=== PATIENT | female | born 1930 | race Caucasian/White ===

== ENCOUNTER 2016-04-09 11:30 | Inpatient (IN) | payer MEDICARE ==
--- NOTE | 2016-04-14 12:47 | HISTORY & PHYSICAL ---
DATE OF ADMISSION: 04/15/16 ADMITTING PHYSICIAN: Axel Mcgarry MD ADMITTING DIAGNOSIS: Severe osteoarthritis of the right knee. HISTORY OF PRESENT ILLNESS: The patient is an 85-year-old female with a longstanding history of right knee pain, who was noted to have severe osteoarthritis of her right knee. Her pain has become quite limiting in terms of her ability to perform activities of daily living and has been refractory to long-term nonoperative management, including activity modification, anti- inflammatories and injection. Due to the severity of her symptoms, she is being admitted for right total knee arthroplasty. PAST MEDICAL HISTORY: Essentially unremarkable. PAST SURGICAL HISTORY: Negative. MEDICATIONS: None on a regular basis except for low-dose aspirin, which she recently stopped. ALLERGIES: No known drug allergies. SOCIAL HISTORY: The patient is a nonsmoker and reports no alcohol use. FAMILY HISTORY: Noncontributory. REVIEW OF SYSTEMS: Negative for chest pain, shortness of breath, or unexplained fever or weight loss. Review of systems is otherwise noncontributory. PHYSICAL EXAMINATION GENERAL: Well-appearing senior female in no acute distress. Alert and oriented x3. HEENT: Atraumatic/normocephalic. EOMI. NECK: Supple without adenopathy. CHEST: Regular rate and rhythm without murmur. LUNGS: Clear to auscultation. ABDOMEN: Soft, nontender. Normoactive bowel sounds. EXTREMITY: She has range of motion in her right knee from 0-130 degrees. There is no varus or valgus instability, negative Maldonado and a negative drawer. She is nontender at the lateral aspect of the knee, but is tender to palpation at the medial joint line. She has 2+ dorsalis pedis pulse distally and has sensation intact throughout to light touch. NEUROLOGIC: Nonfocal. IMAGING: Radiographs of the knee reveal extensive joint space narrowing of the medial compartment, and an MRI of the knee confirms diffuse grade 4 degenerative change. The lateral compartment has evidence of early arthroses and she has moderate patellofemoral arthroses. ASSESSMENT: Severe osteoarthritis of the right knee, with the most significant involved being that of the medial compartment. PLAN: Patient will be taken to the operating room for right total knee arthroplasty. We have discussed the operation, risks and indications. The risks of the procedure include but are not limited to infection, blood loss or nerve injury, persistent pain or stiffness in the knee, premature failure or loosening of the knee implants, or deep vein thrombosis which could potentially lead to a fatal pulmonary embolism. The patient has acknowledged the risks and desires to proceed as planned. MTDD
[2016-04-15] MEDS ORDERED: INSULIN LISPRO 100 UNIT/ML ML SUBCUT ONE (06:27)
[2016-04-15] MEDS ORDERED: CEFAZOLIN SODIUM/DEXTROSE,ISO 2 GM/50 ML PIGGYBACK IV ONE ×2 (06:30→07:30)
[2016-04-15] MEDS ORDERED: FENTANYL 100 MCG/2 ML VIAL ONE (07:14)
[2016-04-15] MEDS ORDERED: FAMOTIDINE IN SALINE, ISO-OSM 50 ML IV ONE (07:17)
[2016-04-15] MEDS ORDERED: MIDAZOLAM HCL 2 MG/2 ML VIAL ONE (07:17)
[2016-04-15] MEDS ORDERED: TETRACAINE HCL 1% 20 MG/2 ML AMP ONE (07:19)
[2016-04-15] MEDS ORDERED: TRANEXAMIC ACID 1,000 MG in NORMAL SALINE 100 ML IV SCH ×3 (07:30→09:16)
[2016-04-15] MEDS ORDERED: LIDOCAINE HCL 2% 20 ML VIAL ONE (07:41)
[2016-04-15] MEDS ORDERED: LIDOCAINE HCL 1% 20 ML VIAL SUBCUT ONE ×2 (08:42→09:16)
[2016-04-15] MEDS ORDERED: FAMOTIDINE IN SALINE, ISO-OSM 20 MG/50 ML PIGGYBACK IV SCH ×2 (08:42→09:16)
[2016-04-15] MEDS ORDERED: MIDAZOLAM HCL 2 MG/2 ML SYR IV ONE ×2 (08:42→09:16)
[2016-04-15] MEDS ORDERED: LACTATED RINGERS 1,000 ML IV SCH ×3 (09:00→09:16)
[2016-04-15] MEDS ORDERED: NALBUPHINE HCL 10 MG/ML AMP IV PRN ×2 (09:16→11:04)
[2016-04-15] MEDS ORDERED: MORPHINE SULFATE 10 MG/ML SYR IV PRN (09:16)
[2016-04-15] MEDS ORDERED: ONDANSETRON HCL 4 MG/2 ML VIAL IV PRN (09:16)
[2016-04-15] MEDS ORDERED: FENTANYL 100 MCG/2 ML VIAL IV PRN (09:16)
[2016-04-15] MEDS ORDERED: NALOXONE HCL 0.4 MG/ML VIAL IV PRN ×6 (09:16→11:04)
[2016-04-15] MEDS ORDERED: DIPHENHYDRAMINE 25 MG CAPSULE PO PRN ×2 (09:16→11:04)
[2016-04-15] MEDS ORDERED: DIPHENHYDRAMINE 50 MG/ML VIAL IV PRN ×2 (09:16→11:04)
[2016-04-15] MEDS ORDERED: MORPHINE SULFATE/PF 10 MG/10 ML VIAL ONE ×2 (09:55→10:01)
[2016-04-15] MEDS ORDERED: BUPIVACAINE/EPI 0.25% 1 VIAL VIAL ONE (09:56)
[2016-04-15] MEDS ORDERED: ROPIVACAINE HCL 0.5% 30 ML ONE (10:02)
[2016-04-15] MEDS ORDERED: NORMAL SALINE 10 ML VIAL ONE (10:02)
[2016-04-15] MEDS ORDERED: KETOROLAC TROMETHAMINE 30 MG/ML VIAL ONE (10:02)
--- NOTE | 2016-04-15 10:07 | PROCEDURE NOTE: Orthopedics ---
Orthopedic Procedure note - Brief Operative Note Date of procedure: 04/15/16 Pre-Op Diagnosis: DJD R knee Post-op diagnosis: same Procedure: R TKA Implants: Depuy Attune knee, size 4 femoral & tibial components, cemented, CR, 10mm poly insert Anesthesia Type: Spinal Physician: MARTHA CHAN Estimated Blood Loss: 10 Total Tourniquet Time (mins): 97 Specimen/Pathology: none sent Sponge/instrument count: correct X-ray/Fluoroscopy: No Condition: stable Disposition: PACU
[2016-04-15] MEDS: CEFAZOLIN SODIUM 1 GM in NORMAL SALINE MINI-BAG+ 100 ML IV SCH ×2 (12:00→18:12)
[2016-04-15] MEDS: ACETAMINOPHEN 325 MG TABLET PO PRN ×3 (14:08→20:08)
[2016-04-15] MEDS: ONDANSETRON HCL 4 MG/2 ML VIAL IV PRN (14:14)
[2016-04-15 14:31] LABS: URINE MUCUS NONE SEEN (Up to 25%); URINE SQUAMOUS EPITHELIAL CELL NONE SEEN (<= 15/hpf); URINE WBC NONE SEEN (0-4/hpf)
[2016-04-15 14:34] LABS: URINE APPEARANCE CLEAR; URINE BILIRUBIN NEGATIVE (NEGATIVE); URINE BLOOD 50 Ery/uL (2+) (NEGATIVE); URINE COLOR YELLOW; URINE GLUCOSE NORMAL (NEGATIVE); URINE KETONE NEGATIVE (NEGATIVE); URINE LEUKOCYTE ESTERASE NEGATIVE (NEGATIVE); URINE NITRITE NEGATIVE (NEGATIVE); URINE PH 5.5 (5-7); URINE PROTEIN NEGATIVE (NEG - TRACE); URINE UROBILINOGEN 0.2mg/dL (Normal) (NEG-1mg/dL)
[2016-04-15 14:43] LABS: URINE BACTERIA <10 ORGANISMS/hpf (<10/hpf)
--- NOTE | 2016-04-15 15:13 | OPERATIVE REPORT ---
DATE OF SURGERY: 04/15/16 SURGEON: Axel Mcgarry MD PREOPERATIVE DIAGNOSIS: Severe osteoarthritis of the right knee. POSTOPERATIVE DIAGNOSIS: Severe osteoarthritis of the right knee. PROCEDURE PERFORMED: Right total knee arthroplasty. IMPLANTS USED: DePuy Attune knee size 4 cemented femoral and tibial components, cruciate retaining with a 10 mm polyethylene insert. 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 She underwent a recent set of radiographs and MRI, which revealed findings consistent with the extensive loss of articular cartilage from the medial femoral condyle as well as fairly severe patellofemoral arthroses. Due to her ongoing symptoms as well as these findings , she was taken to the operating room for right total knee arthroplasty. SUMMARY: After informed consent was obtained, the patient was taken to the operating room where she was placed in the supine position under spinal-block anesthesia. After adequate anesthesia was achieved, the right knee and lower extremity were prepped and draped in the usual sterile fashion, the wound was gently exsanguinated, and a tourniquet was inflated about the proximal thigh to 300 mmHg. A longitudinal incision was then performed over the anterior aspect of the knee and the underlying soft tissue was sharply dissected to reveal the underlying extensor retinaculum. The extensor retinaculum was incised in a medial patellar fashion, and the patella was retracted laterally in order to expose the proximal tibia. First the medial aspect of the tibia metaphysis was exposed, and then the infrapatellar fat pad was resected. The synovectomy was then performed on the suprapatellar pouch, and then the patella was retracted laterally and the knee was brought up into flexion. The medial and lateral menisci were resected, as was the anterior cruciate ligament. The starting position for the intramedullary guide was then established using a rongeur, and the medullary drill was drilled into the femoral canal. The intramedullary guide was then placed into the femoral canal, and the cutting guide was positioned for resection of 9 mm from the distal femur. The cutting guide was then held in place using pins, and the cut was performed using an oscillating saw. The femur was then sized to a size 4, and the 4-way cutting block was positioned on the distal femur and held in place using pins. Once proper position was verified, the final cuts were performed using the oscillating saw. The 4-way cutting block was removed, and then the sulcus guide was placed onto the distal femur, at which time the sulcus resection was performed using a rasp. Attention was then focused on the proximal tibia, at which time the tibial guide was positioned over the anterior aspect of the tibial plateau. It was set for 9 mm of resection from both sides, as she actually had very little articular cartilage on the tibial side of her knee. Once again, the guide was held in place using pins, and then the tibial cut was performed using an oscillating saw. The tibia was also sized to a size 4. The trial components were then placed into the knee, and initially it appeared that the knee was stable with a size 7 insert. We moved the knee through range of motion and she was noted to have good roll back and good stability with varus and valgus stress and full extension. The knee was brought out into extension in order to establish proper rotation, and then the proximal tibia was marked for proper rotation using electrocautery. At that time, the knee was lifted into extension and the patella was measured at only 20 mm of thickness, so we took care in avoiding excessive resection of the patella. It was sized to a size 32, and then the patellar cutting guide was used to resect the articular side of the patella, leaving 13 mm of thickness. The patellar template was placed onto the patella, and the lug holes were drilled. The patellar trial component was then placed onto the patella, and the patella was reduced. The knee was moved through range of motion, and the patella was noted to track well. The patellar trial was then removed, and the knee was brought back up into flexion. At that time, the lug holes were drilled into the distal femur, and then the femoral trial component was removed. The tibial tray was held in position using pins, and then final preparation of the tibia was performed using the drill and summers hole punch. All the trial components were then removed, and then the bony surfaces were irrigated with copious amounts of sterile saline under pulsatile lavage. The knee was then brought out into full extension, at which time the entire wound was thoroughly irrigated under pulsatile lavage. Excess fluid was then drained from the knee as the cement was being mixed, and the posterior joint capsule and the medial and lateral joint capsules were injected with the orthopedic cocktail. The knee was then brought back up into flexion, and once again, the bony surfaces were lavaged and carefully dried, after which the tibial component was cemented into position. The excess cement was removed, and then the femoral component was cemented in the same fashion. Once again, the cement was removed, and the trial insert was then placed into the knee. The knee was brought out into extension in order to allow the cement to harden, and attention was focused back on the patella. The patella was carefully lavaged and dried, after which the patellar component was then cemented into position. Once again, the excess cement was removed. Once all the cement had hardened, the patella was reduced, and once again the knee was moved through a range of motion to verify full extension, as well as good stability with varus and valgus stress. We did decide to use a size 8 polyethylene insert. This again provided good roll back as well as good stability in both flexion and extension. The trial insert was removed, and the wound was irrigated one more time. The polyethylene insert was then taped into place, and we tested the knee for range of motion and stability one last time. The wound was then irrigated again, and then a deep drain was placed. The retinaculum was closed at the high tension point using #1 Fiberwire, and then the remainder of the retinaculum was closed using #1 Vicryl in an interrupted [id number] fashion. The subcutaneous tissue was then closed in layers using 0 and then 2-0 Vicryl, and the skin was closed using skin kenneth. The remaining portion of the orthopedic cocktail was injected into the retinaculum adjacent to the incision, and then the incision site and subcutaneous tissue were injected 0.25% Marcaine with epinephrine. A lightly compressive sterile dressing was then applied, and the tourniquet was deflated. The patient tolerated the procedure well and was taken to the recovery room in stable condition. ESTIMATED BLOOD LOSS: Minimal. FLUIDS: Lactated ringers 1000 mL. TOURNIQUET TIME: 97 minutes. MTDD
[2016-04-15] MEDS: DEXTROSE 5% LACTATED RINGERS 1,000 ML IV SCH (18:12)
[2016-04-15] MEDS: DOCUSATE SODIUM 100 MG CAPSULE PO SCH (20:07)
[2016-04-15] MEDS: CELECOXIB 100 MG CAPSULE PO SCH (20:07)
[2016-04-16] MEDS: CEFAZOLIN SODIUM 1 GM in NORMAL SALINE MINI-BAG+ 100 ML IV SCH (03:28)
[2016-04-16] MEDS: ACETAMINOPHEN 325 MG TABLET PO PRN ×3 (05:40→17:42)
[2016-04-16 06:45] LABS: BASOPHILS 0.2 % (0.0-2.0); EOSINOPHILS 1.8 % (0.0-6.0); EOSINOPHILS# 0.1 X 10^3uL (0.0-0.4); HEMATOCRIT 33.8 % (36.0-48.0); HEMOGLOBIN 11.2 g/dL (12.0-16.0); LYMPHOCYTES 24.5 % (20.0-40.0); LYMPHOCYTES# 1.5 X 10^3uL (0.8-3.8); MEAN CELL VOLUME 91.1 fL (84.0-102.0); MEAN CORPUSCULAR HEMOGLOBIN 30.1 pg (29.0-35.0); MEAN PLATELET VOLUME 7.2 fL (7.4-10.4); MONOCYTES 8.3 % (2.0-10.0); MONOCYTES# 0.5 X 10^3uL (0.2-1.0); NEUTROPHILS 65.2 % (54.0-75.0); NEUTROPHILS# 4.2 X 10^3uL (2.6-6.7); RED BLOOD COUNT 3.71 X 10^6uL (4.20-6.10); RED CELL DISTRIBUTION WIDTH 12.8 % (11.5-14.5); WHITE BLOOD COUNT 6.3 X 10^3uL (3.9-10.7)
[2016-04-16] MEDS: DEXTROSE 5% LACTATED RINGERS 1,000 ML IV SCH (08:17)
--- NOTE | 2016-04-16 08:18 | PROGRESS NOTE: Orthopedics ---
Orthopedic PN Subjective - Subjective Principal Diagnosis: Post op R TKA Post-op Day: 1 Interval history: Pt feels well. Reports pain is well-controlled. Ortho PN Objective Exam - Latest Vital Signs and I&O Latest Vital Signs/I&O: Vital Signs Temp 36.4 C 04/16/16 07:00 Pulse 70 04/16/16 07:00 Resp 14 04/16/16 07:00 BP 124/61 04/16/16 07:00 Pulse Ox 91 04/16/16 07:00 Intake & Output 04/15/16 04/16/16 04/16/16 17:59 05:59 17:59 Intake Total 640 2167 Output Total 815 770 Balance -175 1397 Weight 63.503 kg Intake: IV 1707 Right Hand 1707 Oral 640 460 Output: Drainage 175 270 R. Knee Hemovac 175 270 Urine 640 500 Other: Urine Appearance Clear Clear Urine Color Yellow Yellow Voiding Method Indwelling Catheter Indwelling Catheter # Bowel Movements 0 - Post-Operative Exam Post-op Day: 1 Dressing Status: dry & intact Active Motor: intact Sensation: intact Ahsan's sign: Negative - Lab Labs: Laboratory Last Values WBC 6.3 X 10^3uL (3.9-10.7) 04/16/16 06:05 RBC 3.71 X 10^6uL (4.20-6.10) L 04/16/16 06:05 Hgb 11.2 g/dL (12.0-16.0) L 04/16/16 06:05 Hct 33.8 % (36.0-48.0) L 04/16/16 06:05 MCV 91.1 fL (84.0-102.0) 04/16/16 06:05 MCH 30.1 pg (29.0-35.0) 04/16/16 06:05 MCHC 33.0 g/dL (32.0-36.0) 04/16/16 06:05 RDW 12.8 % (11.5-14.5) 04/16/16 06:05 Plt Count 235 X 10^3uL (130-440) 04/16/16 06:05 MPV 7.2 fL (7.4-10.4) L 04/16/16 06:05 Neutrophils % 65.2 % (54.0-75.0) 04/16/16 06:05 Lymphocytes % 24.5 % (20.0-40.0) 04/16/16 06:05 Eosinophils % 1.8 % (0.0-6.0) 04/16/16 06:05 Basophils % 0.2 % (0.0-2.0) 04/16/16 06:05 Neutrophils # 4.2 X 10^3uL (2.6-6.7) 04/16/16 06:05 Lymphocytes # 1.5 X 10^3uL (0.8-3.8) 04/16/16 06:05 Monocytes 8.3 % (2.0-10.0) 04/16/16 06:05 Monocytes # 0.5 X 10^3uL (0.2-1.0) 04/16/16 06:05 Eosinophils # 0.1 X 10^3uL (0.0-0.4) 04/16/16 06:05 Basophils # 0.0 X 10^3uL (0.0-0.1) 04/16/16 06:05 Urine Color Yellow 04/15/16 13:59 Urine Appearance Clear 04/15/16 13:59 Urine pH 5.5 (5-7) 04/15/16 13:59 Ur Specific [place] 1.010 (0.001-1.035) 04/15/16 13:59 Urine Protein Negative (NEG - TRACE) 04/15/16 13:59 Urine Ketones Negative (NEGATIVE) 04/15/16 13:59 Urine Blood 50 lakisha/ul (2+) (NEGATIVE) A 04/15/16 13:59 Urine Nitrate Negative (NEGATIVE) 04/15/16 13:59 Urine Bilirubin Negative (NEGATIVE) 04/15/16 13:59 Urine Urobilinogen 0.2mg/dl (normal) (NEG-1mg/dL) 04/15/16 13:59 Ur Leukocyte Esterase Negative (NEGATIVE) 04/15/16 13:59 Urine RBC 5-10/hpf (0-5/hpf) A 04/15/16 13:59 Urine WBC None seen (0-4/hpf) 04/15/16 13:59 Ur Squamous Epith Cells None seen (<= 15/hpf) 04/15/16 13:59 Urine Bacteria <10 organisms/hpf (<10/hpf) 04/15/16 13:59 Urine Mucus None seen (Up to 25%) 04/15/16 13:59 Urine Glucose Normal (NEGATIVE) 04/15/16 13:59 Assessment and Plan-Ortho - Date of Encounter Date of Encounter: 04/16/16 (1) Status post total knee replacement, right Assessment and plan: Doing fairly well, but has not yet been out of bed. Plan: Begin mobilization/PT Current Visit: Yes Quality Questions - VTE Prophylaxis Assessment VTE Present on Admission?: No Patient at risk for venous thromboembolism?: Yes VTE Risk Level: High Risk VTE Medical Contraindication: N/A-VTE Prophylaxis ordered
[2016-04-16] MEDS: ENOXAPARIN SODIUM 30 MG/0.3 ML SYR SUBCUT SCH (08:19)
[2016-04-16] MEDS: CELECOXIB 100 MG CAPSULE PO SCH ×2 (08:19→21:09)
[2016-04-16] MEDS: DOCUSATE SODIUM 100 MG CAPSULE PO SCH ×2 (08:19→21:09)
[2016-04-16] MEDS: MULTIVITAMINS THERAPEUTIC 1 TABLET PO SCH (08:19)
[2016-04-16] MEDS ORDERED: O2 HUMIDIFIER 650 ML BOTTLE INHALATION ONE (21:56)
[2016-04-17] MEDS: ACETAMINOPHEN 325 MG TABLET PO PRN ×3 (00:35→12:19)
[2016-04-17] MEDS: ONDANSETRON HCL 4 MG/2 ML VIAL IV PRN ×3 (00:44→08:23)
[2016-04-17] MEDS: DEXTROSE 5% LACTATED RINGERS 1,000 ML IV SCH (00:51)
[2016-04-17 05:39] LABS: EOSINOPHILS 0.7 % (0.0-6.0); RED BLOOD COUNT 3.4 X 10^6uL (4.20-6.10)
[2016-04-17 05:44] LABS: BASOPHILS 0.3 % (0.0-2.0); HEMATOCRIT 31.1 % (36.0-48.0); HEMOGLOBIN 10.4 g/dL (12.0-16.0); LYMPHOCYTES 21.4 % (20.0-40.0); LYMPHOCYTES# 1.3 X 10^3uL (0.8-3.8); MEAN CELL VOLUME 91.6 fL (84.0-102.0); MEAN CORPUS. HGB CONCENTRATION 33.4 g/dL (32.0-36.0); MEAN CORPUSCULAR HEMOGLOBIN 30.6 pg (29.0-35.0); MONOCYTES 9.9 % (2.0-10.0); MONOCYTES# 0.6 X 10^3uL (0.2-1.0); NEUTROPHILS 67.7 % (54.0-75.0); NEUTROPHILS# 4.4 X 10^3uL (2.6-6.7); WHITE BLOOD COUNT 6.3 X 10^3uL (3.9-10.7)
--- NOTE | 2016-04-17 09:31 | PROGRESS NOTE: Orthopedics ---
Orthopedic PN Subjective - Subjective Principal Diagnosis: Post op R TKA Post-op Day: 2 Interval history: Pt feels well. Mild nausea this AM but was able to ambulate about 25 feet w/ assistance Ortho PN Objective Exam - Latest Vital Signs and I&O Latest Vital Signs/I&O: Vital Signs Temp 36.7 C 04/17/16 07:00 Pulse 76 04/17/16 07:00 Resp 20 04/17/16 07:00 BP 135/65 04/17/16 07:00 Pulse Ox 94 04/17/16 07:00 Intake & Output 04/16/16 04/17/16 04/17/16 17:59 05:59 17:59 Intake Total 1650 1859 Output Total 1000 200 Balance 650 1659 Weight 63.5 kg Intake: IV 650 1009 Right Hand 650 1009 Oral 1000 850 Output: Urine 1000 200 Other: Urine Appearance Clear Clear Urine Color Yellow Yellow Voiding Method Toilet Toilet # Voids 3 4 # Bowel Movements 0 - Post-Operative Exam Dressing Status: dry & intact Drainage Amount: none Active Motor: intact Sensation: intact Ahsan's sign: Negative Calf tenderness: no - Lab Labs: Laboratory Last Values WBC 6.3 X 10^3uL (3.9-10.7) 04/17/16 05:00 RBC 3.40 X 10^6uL (4.20-6.10) L 04/17/16 05:00 Hgb 10.4 g/dL (12.0-16.0) L 04/17/16 05:00 Hct 31.1 % (36.0-48.0) L 04/17/16 05:00 MCV 91.6 fL (84.0-102.0) 04/17/16 05:00 MCH 30.6 pg (29.0-35.0) 04/17/16 05:00 MCHC 33.4 g/dL (32.0-36.0) 04/17/16 05:00 RDW 13.0 % (11.5-14.5) 04/17/16 05:00 Plt Count 212 X 10^3uL (130-440) 04/17/16 05:00 MPV 7.0 fL (7.4-10.4) L 04/17/16 05:00 Neutrophils % 67.7 % (54.0-75.0) 04/17/16 05:00 Lymphocytes % 21.4 % (20.0-40.0) 04/17/16 05:00 Eosinophils % 0.7 % (0.0-6.0) 04/17/16 05:00 Basophils % 0.3 % (0.0-2.0) 04/17/16 05:00 Neutrophils # 4.4 X 10^3uL (2.6-6.7) 04/17/16 05:00 Lymphocytes # 1.3 X 10^3uL (0.8-3.8) 04/17/16 05:00 Monocytes 9.9 % (2.0-10.0) 04/17/16 05:00 Monocytes # 0.6 X 10^3uL (0.2-1.0) 04/17/16 05:00 Eosinophils # 0.0 X 10^3uL (0.0-0.4) 04/17/16 05:00 Basophils # 0.0 X 10^3uL (0.0-0.1) 04/17/16 05:00 Urine Color Yellow 04/15/16 13:59 Urine Appearance Clear 04/15/16 13:59 Urine pH 5.5 (5-7) 04/15/16 13:59 Ur Specific [place] 1.010 (0.001-1.035) 04/15/16 13:59 Urine Protein Negative (NEG - TRACE) 04/15/16 13:59 Urine Ketones Negative (NEGATIVE) 04/15/16 13:59 Urine Blood 50 lakisha/ul (2+) (NEGATIVE) A 04/15/16 13:59 Urine Nitrate Negative (NEGATIVE) 04/15/16 13:59 Urine Bilirubin Negative (NEGATIVE) 04/15/16 13:59 Urine Urobilinogen 0.2mg/dl (normal) (NEG-1mg/dL) 04/15/16 13:59 Ur Leukocyte Esterase Negative (NEGATIVE) 04/15/16 13:59 Urine RBC 5-10/hpf (0-5/hpf) A 04/15/16 13:59 Urine WBC None seen (0-4/hpf) 04/15/16 13:59 Ur Squamous Epith Cells None seen (<= 15/hpf) 04/15/16 13:59 Urine Bacteria <10 organisms/hpf (<10/hpf) 04/15/16 13:59 Urine Mucus None seen (Up to 25%) 04/15/16 13:59 Urine Glucose Normal (NEGATIVE) 04/15/16 13:59 Assessment and Plan-Ortho - Date of Encounter Date of Encounter: 04/17/16 (1) Status post total knee replacement, right Assessment and plan: Doing well Plan: Continue PT/OT. Probable discharge to home tomorrow Current Visit: Yes
[2016-04-17] MEDS: ENOXAPARIN SODIUM 30 MG/0.3 ML SYR SUBCUT SCH (09:42)
[2016-04-17] MEDS: MULTIVITAMINS THERAPEUTIC 1 TABLET PO SCH (09:42)
[2016-04-17] MEDS: DOCUSATE SODIUM 100 MG CAPSULE PO SCH ×2 (09:42→20:17)
[2016-04-17] MEDS: CELECOXIB 100 MG CAPSULE PO SCH ×2 (09:42→20:17)
[2016-04-17] MEDS ORDERED: ONDANSETRON ODT 4 MG TAB.RAPDIS PO PRN (18:38)
[2016-04-17] MEDS ORDERED: SENNOSIDES/DOCUSATE SODIUM 1 TAB TABLET PO SCH (21:00)
[2016-04-18 06:35] LABS: BASOPHILS 0.4 % (0.0-2.0); EOSINOPHILS# 0.1 X 10^3uL (0.0-0.4); HEMATOCRIT 30.6 % (36.0-48.0); HEMOGLOBIN 9.9 g/dL (12.0-16.0); LYMPHOCYTES 24.6 % (20.0-40.0); LYMPHOCYTES# 1.6 X 10^3uL (0.8-3.8); MEAN CELL VOLUME 91.7 fL (84.0-102.0); MEAN CORPUS. HGB CONCENTRATION 32.3 g/dL (32.0-36.0); MEAN CORPUSCULAR HEMOGLOBIN 29.6 pg (29.0-35.0); MEAN PLATELET VOLUME 7.3 fL (7.4-10.4); MONOCYTES 11.1 % (2.0-10.0); MONOCYTES# 0.7 X 10^3uL (0.2-1.0); NEUTROPHILS 62.9 % (54.0-75.0); NEUTROPHILS# 3.9 X 10^3uL (2.6-6.7); RED BLOOD COUNT 3.34 X 10^6uL (4.20-6.10); RED CELL DISTRIBUTION WIDTH 13.1 % (11.5-14.5); WHITE BLOOD COUNT 6.3 X 10^3uL (3.9-10.7)
[2016-04-18] MEDS: CELECOXIB 100 MG CAPSULE PO SCH (09:15)
[2016-04-18] MEDS: ENOXAPARIN SODIUM 30 MG/0.3 ML SYR SUBCUT SCH (09:15)
[2016-04-18] MEDS: ACETAMINOPHEN 325 MG TABLET PO PRN (09:16)
[2016-04-18] MEDS: DOCUSATE SODIUM 100 MG CAPSULE PO SCH (09:16)
[2016-04-18] MEDS: MULTIVITAMINS THERAPEUTIC 1 TABLET PO SCH (09:16)
[2016-04-18] MEDS ORDERED: POLYETHYLENE GLYCOL 3350 17 GM POWD.PACK ONE (09:23)
[2016-04-18 10:22] VITALS: BP 114/55; PULSE 79; RESP 16; TEMP 98.2
[2016-04-18 10:57] VITALS: O2SAT 93
[2016-04-18] MEDS ORDERED: WATER IRRIG 1,000 ML BOTTLE ONE (15:37)
== END 2016-04-18 07:57 | disposition home health service (06) | DRG 470 ==
LOC: IN 04-15 05:55
PROVIDERS: ADMIT Orthopaedic Surgery; ATTEND Orthopaedic Surgery
PROC: 0SRC0J9 Replacement of Right Knee Joint with Synthetic Substitute, Cemented, Open Approach (ICD-10-PCS; principal; 2016-04-15)
DX: M17.11 Unilateral primary osteoarthritis, right knee (principal)
CPT/HCPCS: 36415; 81001; 85025; A4217; E0555; J0171; J0690; J1650; J1815; J1885; J2250; J2405; J2795